=== PATIENT | male | born 1975 | race Caucasian/White ===

== ENCOUNTER → 2020-07-23 | Outpatient (CLI) | payer OTHER ==
--- NOTE | 2020-07-23 09:21 | RAD ---
XR KNEE_LT 1-2 VIEWS, XR KNEE_AP BILAT STANDING DATE: 07/23/2020 7:59 AM INDICATION: Reason: knee pain / Spl. Instructions: / History: COMPARISON: None. FINDINGS: Bones: There is no evidence of acute fracture or dislocation. Joints: The joint spaces are normal. There is no joint effusion. Miscellaneous: None. IMPRESSION: Normal exam Electronically signed by: Ihsan Singh MD (07/23/2020 9:19 AM) [id number]
== END ==
LOC: DXRAD 07:53
PROVIDERS: ATTEND Physician Assistant
DX: M25.562 Pain in left knee (principal)
CPT/HCPCS: 73560; 73565